=== PATIENT | male | born 1980 | race Caucasian/White ===

== ENCOUNTER 2020-03-18 19:57 | Emergency (ER) | payer OTHER ==
[2020-03-18] MEDS ORDERED: ONDANSETRON HCL 4 MG/2 ML VIAL ONE (20:26)
[2020-03-18] MEDS ORDERED: MORPHINE SULFATE 4 MG/1ML SYG ONE ×2 (20:27→20:56)
[2020-03-18 20:28] LABS: BASOPHILS % (AUTO) 0.2 % (0.0-5.0); EOSINOPHILS % (AUTO) 0.4 % (0.0-8.0); HEMATOCRIT 44.1 % (42-54); LYMPHOCYTES % (AUTO) 9.2 % (21.0-51.0); MEAN CORPUSCULAR HEMOGLOBIN 30.3 pg (27.0-33.0); MEAN CORPUSCULAR HGB CONC 33.8 g/dL (32.0-36.0); MEAN CORPUSCULAR VOLUME 89.6 fL (79-99); MONOCYTES % (AUTO) 2.6 % (3.0-13.0); NEUTROPHILS % (AUTO) 87.3 % (40.0-77.0); PLATELET COUNT (AUTO) 309 K/uL (130-400); RED BLOOD CELL COUNT(AUTO) 4.92 MIL/uL (4.50-6.20); RED CELL DISTRIBUTION WIDTH 12.4 % (11.0-15.5)
[2020-03-18] MEDS ORDERED: SODIUM CHLORIDE 0.9% 50 ML IV ONE (20:28)
[2020-03-18 20:38] LABS: CREATININE 1.5 mg/dL (0.5-1.5); POTASSIUM 3.7 mmol/L (3.5-5.1)
[2020-03-18 20:42] LABS: ALBUMIN 3.9 g/dL (3.5-5.0); BILIRUBIN,TOTAL 0.4 mg/dL (0.2-1.0); TOTAL PROTEIN, SERUM 7.3 g/dL (6.0-8.3)
[2020-03-18 20:48] LABS: INR 1.01 (0.85-1.15); PARTIAL THROMBOPLASTIN TIME 21.2 SEC (26.3-35.5); PROTHROMBIN TIME 10.9 SEC (9.6-11.6)
[2020-03-18 21:32] LABS: APPEARANCE,URINE Clear (CLEAR); BILIRUBIN,URINE Small (NEGATIVE); COLOR,URINE Dark Yellow (YELLOW); GLUCOSE, URINE (UA) Negative (NEGATIVE); KETONES,URINE Trace mg/dL (NEGATIVE); LEUKOCYTE ESTERASE ,URINE Negative (NEGATIVE); NITRATE,URINE Negative (NEGATIVE); OCCULT BLOOD,URINE Negative (NEGATIVE); PROTEIN,URINE POS 1+ mg/dL (NEGATIVE)
[2020-03-18 21:39] LABS: BACTERIA,URINE Rare /HPF (None Seen); MUCUS,URINE Moderate LPF (None Seen); RBC,URINE 0-1 /HPF (0-1); SQUAMOUS EPITHELIAL CELL,UR Rare /HPF (0-2)
[2020-03-18] MEDS ORDERED: DIATR MEGLU/DIATRIZOATE SODIUM 30 ML BOTTLE ONE (21:39)
[2020-03-18 21:40] LABS: AMPHET/METH SCREEN,URINE NEGATIVE (NEGATIVE); BARBITURATE SCREEN, URINE NEGATIVE (NEGATIVE); BENZODIAZEPINES SCREEN,URINE NEGATIVE (NEGATIVE); CANNABINOID SCREEN,URINE POSITIVE (NEGATIVE); COCAINE SCREEN,URINE POSITIVE (NEGATIVE); OPIATE SCREEN,URINE POSITIVE (NEGATIVE); PHENCYCLIDINE SCREEN,URINE NEGATIVE (NEGATIVE)
[2020-03-18] MEDS ORDERED: HALOPERIDOL LACTATE 5 MG/ML VIAL ONE (22:04)
[2020-03-18] MEDS ORDERED: DiphenhydrAMINE HCL 50 MG/ML VIAL ONE (22:04)
[2020-03-18] MEDS ORDERED: SODIUM CHLORIDE 0.9% 1000ML 1,000 ML IV ONE (22:05)
== END 2020-03-19 00:15 | disposition left against medical advice (07) ==
LOC: EDH 19:57
DX: K63.1 Perforation of intestine (nontraumatic) (principal); K21.9 Gastro-esophageal reflux disease without esophagitis; Z79.899 Other long term (current) drug therapy; Z72.0 Tobacco use
CPT/HCPCS: 36415; 74176; 80053; 80305; 81001; 83690; 84484; 85025; 85610; 85730; 93005; 96361; 96372; 96374; 96375; 99285; J1200; J1630; J2270 ×2; J2405; J7030; Q9963

== ENCOUNTER 2020-03-19 15:02 | Inpatient (IN) | payer SELFPAY ==
[~2020-03-19] VITALS: Ht 180.3 cm; Wt 66.2 kg
[2020-03-19] VITALS (9 sets, daily range): BP systolic 118–150; BP diastolic 83–98
[2020-03-19] MEDS ORDERED: ONDANSETRON HCL 4 MG/2 ML VIAL ONE (15:40)
[2020-03-19] MEDS ORDERED: MORPHINE SULFATE 4 MG/1ML SYG ONE (15:40)
[2020-03-19] MEDS ORDERED: KETOROLAC TROMETHAMINE 30MG/ML ONE (15:40)
[2020-03-19] MEDS ORDERED: METRONIDAZOLE 500MG/100ML BAG 100 ML ONE (16:22)
[2020-03-19 17:15] LABS: BASOPHILS % (AUTO) 0.3 % (0.0-5.0); EOSINOPHILS % (AUTO) 0.4 % (0.0-8.0); HEMATOCRIT 49.9 % (42-54); MEAN CORPUSCULAR HEMOGLOBIN 30.5 pg (27.0-33.0); MEAN CORPUSCULAR HGB CONC 34.5 g/dL (32.0-36.0); MEAN CORPUSCULAR VOLUME 88.5 fL (79-99); MONOCYTES % (AUTO) 2.9 % (3.0-13.0); NEUTROPHILS % (AUTO) 90.1 % (40.0-77.0); PLATELET COUNT (AUTO) 315 K/uL (130-400); RED BLOOD CELL COUNT(AUTO) 5.64 MIL/uL (4.50-6.20); RED CELL DISTRIBUTION WIDTH 12.7 % (11.0-15.5); WHITE BLOOD COUNT (AUTO) 15.6 K/uL (4.8-10.8)
[2020-03-19 17:20] LABS: CARBON DIOXIDE 24 mmol/L (21-32); CHLORIDE 96 mmol/L (101-111); GLOMERULAR FILTR. RATE CALC 39 mL/min (>60); GLUCOSE,RANDOM 89 mg/dL (70-105); INR 1.24 (0.85-1.15); PARTIAL THROMBOPLASTIN TIME 30.3 SEC (26.3-35.5); POTASSIUM 4.2 mmol/L (3.5-5.1); PROTHROMBIN TIME 13.3 SEC (9.6-11.6); SODIUM SERUM 133 mmol/L (136-145); UREA NITROGEN, BLOOD 22 mg/dL (7-18)
[2020-03-19] MEDS ORDERED: ACETAMINOPHEN 325 MG TAB PO PRN ×4 (17:30→19:00)
[2020-03-19] MEDS ORDERED: ONDANSETRON HCL 4 MG/2 ML VIAL IVP PRN ×2 (17:30→19:00)
[2020-03-19 17:31] LABS: ALANINE AMINOTRANSFERASE 27 U/L (12-78); ALBUMIN 3.5 g/dL (3.5-5.0); ASPARTATE AMINOTRANSFERASE 28 U/L (10-37); BILIRUBIN,TOTAL 0.7 mg/dL (0.2-1.0); CREATINE KINASE, TOTAL 331 U/L (21-232); MYOGLOBIN 175 ng/mL (10-92); TROPONIN I < 0.04 ng/mL (0.00-0.06)
[2020-03-19] MEDS ORDERED: METOCLOPRAMIDE 10 MG/2 ML VIAL ONE (17:39)
[2020-03-19] MEDS ORDERED: LACTATED RINGERS 1000ML 1,000 ML IV ONE (17:39)
[2020-03-19] MEDS ORDERED: LIDOCAINE PF 2% 5ML ABBOJECT ONE (17:50)
[2020-03-19] MEDS ORDERED: SUCCINYLCHOLINE CHLORIDE 20 MG/ML 10 ML VIAL ONE (17:50)
[2020-03-19] MEDS ORDERED: MIDAZOLAM HCL 1 MG/ML 2ML VIAL ONE (17:51)
[2020-03-19] MEDS ORDERED: ROCURONIUM 10MG/1ML SYR 10 MG/ML ML ONE (17:51)
[2020-03-19] MEDS ORDERED: PROPOFOL 10 MG/ML 20ML VIAL IV ONE ×2 (17:51→19:10)
[2020-03-19] MEDS ORDERED: FENTANYL CITRATE PF 50 MCG/1 ML 5ML AMP IV ONE (17:52)
[2020-03-19 18:02] LABS: APPEARANCE,URINE SL CLOUDY (CLEAR); BILIRUBIN,URINE SMALL (NEGATIVE); COLOR,URINE YELLOW (YELLOW); GLUCOSE, URINE (UA) NEGATIVE (NEGATIVE); KETONES,URINE 15 mg/dL (NEGATIVE); LEUKOCYTE ESTERASE ,URINE NEGATIVE (NEGATIVE); NITRATE,URINE POSITIVE (NEGATIVE); OCCULT BLOOD,URINE TRACE-INTACT (NEGATIVE); PROTEIN,URINE 30 mg/dL (NEGATIVE); UROBILINOGEN,URINE 0.2 mg/dL (0.2-1.0)
[2020-03-19 18:09] LABS: BACTERIA,URINE Moderate /HPF (None Seen); MUCUS,URINE Few LPF (None Seen); SQUAMOUS EPITHELIAL CELL,UR 0-2 /HPF (0-2)
[2020-03-19] MEDS ORDERED: CEFAZOLIN SODIUM 1 GM VIAL ONE (18:37)
[2020-03-19] MEDS ORDERED: ZOLPIDEM TARTRATE 5 MG TAB PO PRN (19:00)
[2020-03-19] MEDS ORDERED: DIPHENHYDRAMINE HCL 25 MG CAPSULE PO PRN (19:00)
[2020-03-19] MEDS ORDERED: NEOSTIGMINE 5MG/5ML SYR IV ONE (19:10)
[2020-03-19] MEDS ORDERED: GLYCOPYRROLATE 1 MG/5 ML SYRINGE ONE (19:10)
[2020-03-19] MEDS ORDERED: FENTANYL CITRATE PF 50 MCG/1 ML 2ML VIAL ONE (19:16)
[2020-03-19] MEDS ORDERED: SODIUM CHLORIDE 0.9% 500ML 500 ML IV ONE (20:23)
[2020-03-19] MEDS: SODIUM CHLORIDE 0.9% 1000ML 1,000 ML IV SCH (22:00)
[2020-03-19] MEDS: FAMOTIDINE/PF 20 MG/2 ML VIAL IV SCH (22:01)
[2020-03-19] MEDS: ZOSYN 3.375GM+NS 50ML 50 ML IV SCH (22:01)
[2020-03-19] MEDS: MORPHINE SULFATE 2 MG/ML 1ML SYG IVP PRN (22:46)
[2020-03-19] MEDS: MORPHINE SULFATE 4 MG/1ML SYG IV PRN (23:05)
[2020-03-20] VITALS (11 sets, daily range): BP systolic 113–133; BP diastolic 67–87
[2020-03-20] MEDS: MORPHINE SULFATE 2 MG/ML 1ML SYG IVP PRN ×4 (01:59→18:27)
[2020-03-20] MEDS: ZOSYN 3.375GM+NS 50ML 50 ML IV SCH ×3 (02:02→16:56)
[2020-03-20 04:23] LABS: BASOPHILS % (AUTO) 0.2 % (0.0-5.0); EOSINOPHILS % (AUTO) 0.3 % (0.0-8.0); HEMATOCRIT 39.9 % (42-54); LYMPHOCYTES % (AUTO) 6.9 % (21.0-51.0); MEAN CORPUSCULAR HEMOGLOBIN 30.2 pg (27.0-33.0); MEAN CORPUSCULAR HGB CONC 34.6 g/dL (32.0-36.0); MEAN CORPUSCULAR VOLUME 87.3 fL (79-99); MONOCYTES % (AUTO) 4.2 % (3.0-13.0); NEUTROPHILS % (AUTO) 87.9 % (40.0-77.0); PLATELET COUNT (AUTO) 244 K/uL (130-400); RED BLOOD CELL COUNT(AUTO) 4.57 MIL/uL (4.50-6.20); RED CELL DISTRIBUTION WIDTH 12.7 % (11.0-15.5); WHITE BLOOD COUNT (AUTO) 12.9 K/uL (4.8-10.8)
[2020-03-20 04:56] LABS: CREATININE 1.5 mg/dL (0.5-1.5); POTASSIUM 4.5 mmol/L (3.5-5.1)
[2020-03-20] MEDS: SODIUM CHLORIDE 0.9% 1000ML 1,000 ML IV SCH ×2 (07:00→12:38)
[2020-03-20] MEDS: MORPHINE SULFATE 4 MG/1ML SYG IV PRN ×3 (07:08→22:24)
[2020-03-20] MEDS: FAMOTIDINE/PF 20 MG/2 ML VIAL IV SCH (07:53)
--- NOTE | 2020-03-20 08:15 | NUR ---
ADMISSION ASSESSMENT UPON DOING THE ADMISSION ASSESSMENT PT STATED HE HAD SUICIDE THOUGHTS 2 DAYS PRIOR IN THE [facility]. PT TO BE PLACED ON A 1:1 FOR SUICIDE RISK. ROOM CLEARED OF HAZARD ITEMS.
--- NOTE | 2020-03-20 08:55 | NUR ---
CHART CHECK COMPLETED. Pt IS A 39 Y.O. MALE ADMITTED SECONDARY TO PERFORATED BOWEL. Pt HAS A PAST MEDICAL HISTORY SIGNIFICANT FOR GERD, ADHD, SMOKER, ALCOHOL, USES STREET DRUGS AND COCAINE. Pt CURRENTLY NPO SECONDARY TO ADMITTING DIAGNOSIS. PLEASE REQUEST FORMAL SKILLED SPEECH THERAPY ORDER IF Pt PRESENTS WITH +S/S OF ASPIRATION SUCH COUGH RESPONSE, THROAT CLEAR OR WET VOCAL QUALITY AT MEAL TIMES. Addendum: 03/20/20 at 0859 by MONICA VASQUEZ, [facility] Amended: Links added.
[2020-03-20] MEDS: NICOTINE 21 MG/ 24 HR PATCH TD SCH (11:28)
--- NOTE | 2020-03-20 12:00 | NUR ---
DR. RAMIREZ CONSULTED. FACESHEET FAXED TO OFFICE.
--- NOTE | 2020-03-20 13:30 | NUR ---
SS NOTE-REFERRAL for SUICIDAL IDEATIONS SW met with pt. who is awake, alert, oriented and cooperative. Pt. reports that he is , independent, not currently employed and resides with his mother Zaina Jean Baptiste. Pt. denies any history of depression, suicide attempts or inpatient psych services. Pt. denies any current thoughts of harm to self or others, denies hallucinations. Pt. admits to having said he was having suicidal ideations [facility] prior to this admission as a way for the guards to transfer him to hospital and only for that reason. Pt. denies any history of mental illness and denies depressed mood. Pt. reports that he has two children that depend on him and that his family/mother and twin brother are supportive of him. Pt. reports history of incarceration for evading arrest. 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 is employed in landscaping and odd jobs. Pt. is not insured, is not registered with a clinic or pharmacy but reports he is aware of [facility]. Plan is for pt. to be downgraded to unit when medically cleared by surgeon. Pt. informed that this worker would follow up to provide community resource packet; pt. verbalized an understanding. Pt. verbalized financial assistance needed with hospitalization; SW contacted [facility] for follow up. Addendum: 03/20/20 at 1513 by ZAINA YA Amended: Links added.
--- NOTE | 2020-03-20 13:30 | NUR ---
Pt. is independent, own healthcare decision maker, unemployed, , resides w/mom. No DME, HH or provider services. Uninsured, no PCP or pharmacy. Pt's mother will provide transportation home: Zaina PosadasLayla Jean Baptiste [phone]. [employer] packet. Addendum: 03/21/20 at 0741 by ZAINA ONOFRE Amended: Links added.
[2020-03-20] MEDS ORDERED: LACTATED RINGERS 1000ML 1,000 ML IV ONE (13:36)
[2020-03-20] MEDS: PANTOPRAZOLE 40 MG/VIAL IVP SCH ×2 (14:00→21:30)
[2020-03-20] MEDS: LACTATED RINGERS 1000ML 1,000 ML IV SCH ×2 (14:18→23:30)
--- NOTE | 2020-03-20 15:15 | NUR ---
SW NOTE Continued----ADDENDUM---Pt. admits to use of etoh, cocaine and tobacco; denies any addictions to use, and declined resources for Substance Use.
[2020-03-20] MEDS ORDERED: FOLIC ACID 5 MG/ML 10 ML VIAL IV SCH (17:15)
[2020-03-20] MEDS ORDERED: THIAMINE HCL 100 MG/ML 2ML VIAL IVP SCH (17:15)
--- NOTE | 2020-03-20 22:45 | NUR ---
Patient transferred Received patient from room 225 under stable conditions, patient denies having any pain or discomfort at this time. Patient noted to have singh catheter, Right NG tube, dressing to abdomen C/D/I with CATHY drain in place.
[2020-03-21 00:20] VITALS: BP 133/79
[2020-03-21] MEDS: ZOSYN 3.375GM+NS 50ML 50 ML IV SCH ×2 (01:20→10:36)
[2020-03-21] MEDS: MORPHINE SULFATE 2 MG/ML 1ML SYG IVP PRN ×6 (02:26→22:50)
[2020-03-21 04:12] VITALS: BP 133/77
[2020-03-21 05:24] LABS: BASOPHILS % (AUTO) 0.2 % (0.0-5.0); HEMATOCRIT 36.5 % (42-54); LYMPHOCYTES % (AUTO) 6.1 % (21.0-51.0); MEAN CORPUSCULAR HEMOGLOBIN 29.8 pg (27.0-33.0); MEAN CORPUSCULAR HGB CONC 33.7 g/dL (32.0-36.0); MEAN CORPUSCULAR VOLUME 88.4 fL (79-99); MONOCYTES % (AUTO) 3.6 % (3.0-13.0); NEUTROPHILS % (AUTO) 89.2 % (40.0-77.0); PLATELET COUNT (AUTO) 211 K/uL (130-400); RED BLOOD CELL COUNT(AUTO) 4.13 MIL/uL (4.50-6.20); RED CELL DISTRIBUTION WIDTH 12.3 % (11.0-15.5); WHITE BLOOD COUNT (AUTO) 10.9 K/uL (4.8-10.8)
[2020-03-21 05:44] LABS: ALBUMIN 2.1 g/dL (3.5-5.0); BILIRUBIN,TOTAL 0.5 mg/dL (0.2-1.0); CREATININE 1.2 mg/dL (0.5-1.5); MAGNESIUM 1.9 mg/dL (1.80-2.40); POTASSIUM 4.6 mmol/L (3.5-5.1); TOTAL PROTEIN, SERUM 5.5 g/dL (6.0-8.3)
--- NOTE | 2020-03-21 08:00 | NUR ---
PT AAA X 3 REVIEW PLAN OF CARE . PT IS A ONE TO ONE MONITOR . ABD DRSG INTACT , WITH A J.P.DRAIN NOTED TO HIS RT LOWER SIDE OF ABD , COMPRESS J.P. BULB FOR COMPRESSSION WITH A FLUILD OUTPUT OF VERY LIGHT SANGROIUS OUTPT . NGT TO HIS RT NARE, AND CHECK FOR PLACEMENT WAS A VERY SM AIR BOLUS ,AND NG IN PLACE ,NOTED TO WALL LOW INTERMMITTED SUCTION WITH A YELLOWISH GREENISH GASTRIC OUTPUT . SIEGEL CATHETER NOTED. AND SECURE TO HIS RT THIGH , WITH A URINE FLOW OF YELLOW URINE. CALL LIGHT IN REACH. BED LEVEL DOWN . AND ENCOURAGE DEEP BREATHING ,
[2020-03-21 08:01] VITALS: BP 140/79
[2020-03-21] MEDS ORDERED: COMPOUND IV REFRIGERATED 1 EACH IVSOLN MISC PRN (08:15)
--- NOTE | 2020-03-21 08:25 | NUR ---
ONEIL NOTE--Revisited to provide Community Resources as he was informed SW would do so; pt. sleeping with 1 to 1 at bedside, resources left on bedside table.
[2020-03-21] MEDS: THIAMINE HCL 100 MG/ML 2ML VIAL IVP SCH (10:36)
[2020-03-21] MEDS: NICOTINE 21 MG/ 24 HR PATCH TD SCH (10:36)
[2020-03-21] MEDS: PANTOPRAZOLE 40 MG/VIAL IVP SCH ×2 (10:36→19:57)
[2020-03-21] MEDS: LACTATED RINGERS 1000ML 1,000 ML IV SCH (10:40)
[2020-03-21] MEDS: FOLIC ACID 5 MG/ML 10 ML VIAL IV SCH (14:39)
[2020-03-21] MEDS: FLUCONAZOLE 200 MG/NS 100 ML 100 ML IV SCH (14:39)
[2020-03-21] MEDS: DEXTROSE 5%-LACTATED RINGERS 1,000 ML IV SCH (16:00)
--- NOTE | 2020-03-21 17:50 | NUR ---
PT , MOVING HIS NGT UP AND DOWN ,AND SIDE TO SIDE, NOTED VERY LIGHT PINKISH NGT GASTRIC SECREATION, NGT TUBE CHECK FOR PLACEMENT WITH A AIR BOLUS OVER GASTRIC REGION NGT IN PLACE ,SETTING ON LOW INTERMMITTED SUCTION . HOB UP . EXPLAIN TO [PT NOT TO TOUCH IT. TO CALL NURSE . FOR ANY CONCERNS .
--- NOTE | 2020-03-21 18:00 | NUR ---
DR. FAITH WAS CALLED AND WAS NOTIFY OF A GASTRIC OUTPUT FROM HIS NGT LIGHT , PINKISH THIN . NOTIFY ALSO THAT PT PICKS ON HIS NGT . UP AND DOWN. AND SIDE TO SIDE, AND LOOKS AT THE TUBES, AND KEEPS ON TOUCH IT , ORDERS FOR LABS IN AM. AND MONITOR , .
[2020-03-21 20:00] VITALS: BP 137/89
--- NOTE | 2020-03-21 20:38 | NUR ---
RESTING IN BED , ENCOURAGE TO DO THE I.S. RESP EXCERCISES . DOES UP TO 1500 CC
[2020-03-22] VITALS (7 sets, daily range): BP systolic 123–147; BP diastolic 82–94
[2020-03-22] MEDS: MORPHINE SULFATE 2 MG/ML 1ML SYG IVP PRN ×4 (02:50→22:50)
[2020-03-22 03:47] LABS: HEMATOCRIT 31.7 % (42-54); MEAN CORPUSCULAR HEMOGLOBIN 30.2 pg (27.0-33.0); MEAN CORPUSCULAR HGB CONC 34.7 g/dL (32.0-36.0); MEAN CORPUSCULAR VOLUME 87.1 fL (79-99); RED BLOOD CELL COUNT(AUTO) 3.64 MIL/uL (4.50-6.20); RED CELL DISTRIBUTION WIDTH 12.2 % (11.0-15.5); WHITE BLOOD COUNT (AUTO) 10.7 K/uL (4.8-10.8)
[2020-03-22 04:06] LABS: POTASSIUM 3.5 mmol/L (3.5-5.1)
--- NOTE | 2020-03-22 05:00 | NUR ---
Patient ambulated around the floor twice. Denied any problems or discomfort. Back in bed and is comfortable
[2020-03-22] MEDS: DEXTROSE 5%-LACTATED RINGERS 1,000 ML IV SCH ×2 (05:20→21:25)
[2020-03-22] MEDS: PANTOPRAZOLE 40 MG/VIAL IVP SCH ×2 (10:52→21:25)
[2020-03-22] MEDS: THIAMINE HCL 100 MG/ML 2ML VIAL IVP SCH (10:52)
[2020-03-22] MEDS: FOLIC ACID 5 MG/ML 10 ML VIAL IV SCH (10:53)
[2020-03-22] MEDS: NICOTINE 21 MG/ 24 HR PATCH TD SCH (10:53)
[2020-03-22] MEDS: FLUCONAZOLE 200 MG/NS 100 ML 100 ML IV SCH (10:53)
[2020-03-22] MEDS: MORPHINE SULFATE 4 MG/1ML SYG IV PRN (10:53)
--- NOTE | 2020-03-22 15:14 | NUR ---
RD NOTIFICATION Pt admitted with perforated bowel. Pt is s/p emergent surgical repair. RD notified for TPN recommendation; plans for TPN cancelled as per RN, Pt diet advanced to Clear Liquid and not to be advanced as per order. Pt small for age and height. Monitored labs: Ca 8.2, Alb 2.1. Pt with history of polysubstance abuse. Pending Psychiatric eval as per EMR. Folic acid, fluconazole, nicoderm, morphine, thiamine, protonix medications in place. Recommend Ensure Clear TID with meals Recommend to continue vitamin supplementation RD to continue to monitor. Please notify as additional nutrition concerns arise. Thank you. Addendum: 03/22/20 at [address] Amended: Links added.
--- NOTE | 2020-03-22 19:00 | NUR ---
PM Assessment Received pt awake on high back rest, routine assessment done, plan of care discuss, reminded only on clear liquid diet for now, pt claimed (+) flatus, no BM. Dressing to the surgical site abdominal area & CATHY drain site noted with dry serosanguineous of the dressing, change aseptically, site swab with iodine, 35 staple sutures intact, well approximated, CATHY drain silk suture intact cover with non adherent pad, 4x4 gauze secure with MedFix retention tape. No drainage noted on the incision site & CATHY puncture site. IV access noted infiltrated discontinued aseptically, new access initiated x 1 attempt with all procedures well tolerated. Pt made aware bowel sound still hypoactive, encourage to ambulate before going to sleep tonight, agreed. Pt currently claimed feeling better as he was given Morphine earlier.
--- NOTE | 2020-03-22 20:30 | NUR ---
Re: Ambulation Pt requested to ambulate at this time, D5LR at 75cc stop for now as pt wants do everything on his own, fix all his contraptions, making sure nothing is disconnected, ambulated around the unit x 4 rounds, claimed to be passing flatus more & that it makes his abdomen feels good. Pt made aware in case he is able to have a BM to make sure to notify us so hopefully his diet will be progress to full liquid then soft or regular diet.
[2020-03-23] MEDS: MORPHINE SULFATE 2 MG/ML 1ML SYG IVP PRN ×3 (02:54→11:42)
[2020-03-23 04:42] VITALS: BP 135/86
[2020-03-23 06:22] LABS: BASOPHILS % (AUTO) 0.1 % (0.0-5.0); EOSINOPHILS % (AUTO) 0.1 % (0.0-8.0); HEMATOCRIT 34.7 % (42-54); LYMPHOCYTES % (AUTO) 7.1 % (21.0-51.0); MEAN CORPUSCULAR HEMOGLOBIN 30.6 pg (27.0-33.0); MEAN CORPUSCULAR HGB CONC 35.4 g/dL (32.0-36.0); MEAN CORPUSCULAR VOLUME 86.3 fL (79-99); MONOCYTES % (AUTO) 8.4 % (3.0-13.0); NEUTROPHILS % (AUTO) 83.3 % (40.0-77.0); PLATELET COUNT (AUTO) 218 K/uL (130-400); RED BLOOD CELL COUNT(AUTO) 4.02 MIL/uL (4.50-6.20); RED CELL DISTRIBUTION WIDTH 12.4 % (11.0-15.5); WHITE BLOOD COUNT (AUTO) 10.9 K/uL (4.8-10.8)
[2020-03-23 06:41] LABS: MAGNESIUM 1.9 mg/dL (1.80-2.40); POTASSIUM 3.4 mmol/L (3.5-5.1)
[2020-03-23 07:00] VITALS: BP 115/69
[2020-03-23] MEDS: DEXTROSE 5%-LACTATED RINGERS 1,000 ML IV SCH ×2 (08:00→20:08)
[2020-03-23] MEDS: NICOTINE 21 MG/ 24 HR PATCH TD SCH (09:45)
[2020-03-23] MEDS: PANTOPRAZOLE 40 MG/VIAL IVP SCH ×2 (09:45→20:04)
[2020-03-23] MEDS: THIAMINE HCL 100 MG/ML 2ML VIAL IVP SCH (09:45)
[2020-03-23] MEDS: FLUCONAZOLE 200 MG/NS 100 ML 100 ML IV SCH (09:45)
[2020-03-23] MEDS: FOLIC ACID 5 MG/ML 10 ML VIAL IV SCH (09:47)
[2020-03-23] MEDS ORDERED: LACTULOSE 20 GM/30 ML UDCUP PO PRN (10:00)
[2020-03-23 11:00] VITALS: BP 141/85
[2020-03-23] MEDS ORDERED: BISACODYL 10 MG SUPP.RECT RC PRN (13:00)
[2020-03-23 15:00] VITALS: BP 155/100
--- NOTE | 2020-03-23 15:01 | NUR ---
DR. FAITH MADE AWARE OF KUB RESULTS OF ILEUS VS OBSTRUCTION. PER DR. FAITH KEEP PATIENT NPO, DR. FAITH MADE AWARE PATIENT DID HAVE A BOWEL MOVEMENT TODAY AND IS PASSING GAS. NO FURTHER ORDERS MD WILL REEVALUATE PATIENT TOMORROW
--- NOTE | 2020-03-23 15:12 | NUR ---
SIEGEL CATHETER DISCONTINUED WITH NO COMPLICATIONS
[2020-03-23] MEDS: MORPHINE SULFATE 4 MG/1ML SYG IV PRN ×2 (16:24→20:07)
[2020-03-23 16:40] LABS: APPEARANCE,URINE Cloudy (CLEAR); BILIRUBIN,URINE Negative (NEGATIVE); COLOR,URINE Yellow (YELLOW); GLUCOSE, URINE (UA) Negative (NEGATIVE); KETONES,URINE 15 mg/dL (NEGATIVE); LEUKOCYTE ESTERASE ,URINE Small (NEGATIVE); NITRATE,URINE Negative (NEGATIVE); OCCULT BLOOD,URINE Large (NEGATIVE); PH,URINE 5.5 (5.0-8.0); PROTEIN,URINE POS 1+ mg/dL (NEGATIVE)
[2020-03-23 16:50] LABS: BACTERIA,URINE Few /HPF (None Seen); MUCUS,URINE Moderate LPF (None Seen); SPERM,URINE Moderate /HPF (None Seen); SQUAMOUS EPITHELIAL CELL,UR Few /HPF (0-2)
[2020-03-23] MEDS ORDERED: DEXTROSE 5%-LACTATED RINGERS 1,000 ML IV ONE (18:19)
[2020-03-23 20:25] VITALS: BP 127/90
[2020-03-23 23:39] VITALS: BP 131/94
[2020-03-24] MEDS: MORPHINE SULFATE 2 MG/ML 1ML SYG IVP PRN (00:17)
--- NOTE | 2020-03-24 03:29 | NUR ---
I noticed on the progress notes for Dr. De Santiago and Dr. Levy that both are entering that the Zoysn will be continued. I noticed it had been started on 03/19/[address] Regalado, and then discontinued on the by 's CANCELING AND CUTTING CONTROL CLERK. I paged Roverto CLOTHER IN via answering service, answered within a few seconds, informed her of above, she stated to go ahead and clarify it with in the morning.
[2020-03-24 03:49] VITALS: BP 152/86
[2020-03-24] MEDS ORDERED: DEXTROSE 5%-LACTATED RINGERS 1,000 ML IV ONE ×2 (04:23→17:09)
[2020-03-24] MEDS: DEXTROSE 5%-LACTATED RINGERS 1,000 ML IV SCH ×2 (04:29→17:53)
[2020-03-24] MEDS: MORPHINE SULFATE 4 MG/1ML SYG IV PRN (04:29)
[2020-03-24 06:11] LABS: BASOPHILS % (AUTO) 0.3 % (0.0-5.0); EOSINOPHILS % (AUTO) 0.3 % (0.0-8.0); LYMPHOCYTES % (AUTO) 9.9 % (21.0-51.0); MEAN CORPUSCULAR HEMOGLOBIN 29.8 pg (27.0-33.0); MEAN CORPUSCULAR HGB CONC 34.3 g/dL (32.0-36.0); MEAN CORPUSCULAR VOLUME 86.9 fL (79-99); MONOCYTES % (AUTO) 9.2 % (3.0-13.0); NEUTROPHILS % (AUTO) 79.1 % (40.0-77.0); PLATELET COUNT (AUTO) 272 K/uL (130-400); RED BLOOD CELL COUNT(AUTO) 4.26 MIL/uL (4.50-6.20); RED CELL DISTRIBUTION WIDTH 12.5 % (11.0-15.5); WHITE BLOOD COUNT (AUTO) 10.1 K/uL (4.8-10.8)
[2020-03-24 06:31] LABS: CREATININE 0.8 mg/dL (0.5-1.5); MAGNESIUM 1.9 mg/dL (1.80-2.40); POTASSIUM 3.9 mmol/L (3.5-5.1)
[2020-03-24 07:00] VITALS: BP 149/99
--- NOTE | 2020-03-24 08:00 | NUR ---
AM ASSESSMENT PT SITTING IN BED, WATCHING TV. A/O X 3. NO SOB. NO DISTRESS NOTED. C/O ABD/INCISIONAL PAIN @ THIS TIME. IV PAIN MED TO BE GIVEN. DENIES CHEST PAIN AND/OR PALPITATIONS. TELE: SR. NPO STATUS REINFORCED. DENIES N/V AND/OR DIARRHEA. ABD INCISION DSG DRY & INTACT. NO DRAINAGE NOTED. CATHY DRAIN PATENT & DRAINING, SEROUS. D5LR INFUSING @ 100 ML/HR. UP AD DAYAMI. FREQUENTLY AMBULATING IN HALLWAY; TOLERATING WELL. INSTRUCTED TO CALL FOR ASSISTANCE. CALL CHICHI W/IN REACH.
[2020-03-24] MEDS: FLUCONAZOLE 200 MG/NS 100 ML 100 ML IV SCH (08:27)
[2020-03-24] MEDS: THIAMINE HCL 100 MG/ML 2ML VIAL IVP SCH (08:27)
[2020-03-24] MEDS: NICOTINE 21 MG/ 24 HR PATCH TD SCH (08:30)
[2020-03-24] MEDS ORDERED: POLYETHYLENE GLYCOL 3350 17 GM POWD.PACK PO SCH (09:00)
[2020-03-24] MEDS ORDERED: KETOROLAC TROMETHAMINE 30MG/ML IM PRN (10:30)
[2020-03-24 11:00] VITALS: BP 142/93
[2020-03-24] MEDS: PANTOPRAZOLE 40 MG/VIAL IVP SCH ×2 (11:26→20:23)
[2020-03-24] MEDS: FOLIC ACID 5 MG/ML 10 ML VIAL IV SCH (11:38)
[2020-03-24] MEDS: KETOROLAC TROMETHAMINE 30MG/ML IV SCH ×3 (11:48→23:54)
[2020-03-24] MEDS ORDERED: KETOROLAC TROMETHAMINE 30MG/ML IM SCH (12:00)
[2020-03-24] MEDS: ZOSYN 3.375GM+NS 50ML 50 ML IV SCH ×2 (13:24→20:24)
[2020-03-24 15:00] VITALS: BP 125/88
[2020-03-24 19:30] VITALS: BP 135/86
[2020-03-24 23:33] VITALS: BP 130/90
[2020-03-25 03:37] VITALS: BP 132/89
[2020-03-25] MEDS ORDERED: DEXTROSE 5%-LACTATED RINGERS 1,000 ML IV ONE ×2 (04:05→18:05)
[2020-03-25] MEDS: ZOSYN 3.375GM+NS 50ML 50 ML IV SCH ×3 (04:09→20:52)
[2020-03-25 06:02] LABS: BASOPHILS % (AUTO) 0.2 % (0.0-5.0); EOSINOPHILS % (AUTO) 0.8 % (0.0-8.0); LYMPHOCYTES % (AUTO) 12.5 % (21.0-51.0); MEAN CORPUSCULAR HEMOGLOBIN 29.3 pg (27.0-33.0); MEAN CORPUSCULAR HGB CONC 33.3 g/dL (32.0-36.0); MEAN CORPUSCULAR VOLUME 87.8 fL (79-99); MONOCYTES % (AUTO) 8.4 % (3.0-13.0); NEUTROPHILS % (AUTO) 77.2 % (40.0-77.0); PLATELET COUNT (AUTO) 317 K/uL (130-400); RED BLOOD CELL COUNT(AUTO) 4.44 MIL/uL (4.50-6.20); RED CELL DISTRIBUTION WIDTH 12.3 % (11.0-15.5); WHITE BLOOD COUNT (AUTO) 10.3 K/uL (4.8-10.8)
[2020-03-25] MEDS: KETOROLAC TROMETHAMINE 30MG/ML IV SCH ×4 (06:03→23:49)
[2020-03-25 06:13] LABS: CREATININE 0.9 mg/dL (0.5-1.5); MAGNESIUM 1.8 mg/dL (1.80-2.40); POTASSIUM 3.8 mmol/L (3.5-5.1)
[2020-03-25 08:00] VITALS: BP 130/80
[2020-03-25] MEDS: NICOTINE 21 MG/ 24 HR PATCH TD SCH (08:52)
[2020-03-25] MEDS: FLUCONAZOLE 200 MG/NS 100 ML 100 ML IV SCH (08:52)
[2020-03-25] MEDS: PANTOPRAZOLE 40 MG/VIAL IVP SCH ×2 (08:52→20:52)
[2020-03-25] MEDS: THIAMINE HCL 100 MG/ML 2ML VIAL IVP SCH (09:00)
[2020-03-25 11:18] VITALS: BP 134/89
[2020-03-25] MEDS: FOLIC ACID 5 MG/ML 10 ML VIAL IV SCH (12:18)
[2020-03-25 15:53] VITALS: BP 117/78
[2020-03-25] MEDS: DEXTROSE 5%-LACTATED RINGERS 1,000 ML IV SCH (18:19)
[2020-03-25 20:00] VITALS: BP 127/83
[2020-03-25] MEDS: ENOXAPARIN SODIUM 30 MG/0.3 ML SQ SCH (20:54)
[2020-03-25 23:51] VITALS: BP 131/84
[2020-03-26 04:01] VITALS: BP 138/87
--- NOTE | 2020-03-26 04:58 | NUR ---
ACTIVITY PATIENT IS WALKED IN HALLWAY SEVERAL TIMES AROUND UNIT.
[2020-03-26 05:46] LABS: CREATININE 0.9 mg/dL (0.5-1.5); POTASSIUM 3.7 mmol/L (3.5-5.1)
[2020-03-26] MEDS: ZOSYN 3.375GM+NS 50ML 50 ML IV SCH ×2 (06:14→13:00)
[2020-03-26] MEDS: KETOROLAC TROMETHAMINE 30MG/ML IV SCH ×2 (06:20→12:37)
[2020-03-26] MEDS ORDERED: DEXTROSE 5%-LACTATED RINGERS 1,000 ML IV ONE (06:21)
[2020-03-26] MEDS: DEXTROSE 5%-LACTATED RINGERS 1,000 ML IV SCH (06:40)
[2020-03-26 07:58] VITALS: BP 131/84
[2020-03-26] MEDS: PANTOPRAZOLE 40 MG/VIAL IVP SCH (08:35)
[2020-03-26] MEDS: FLUCONAZOLE 200 MG/NS 100 ML 100 ML IV SCH (08:36)
[2020-03-26] MEDS: FOLIC ACID 5 MG/ML 10 ML VIAL IV SCH (08:36)
[2020-03-26] MEDS: ENOXAPARIN SODIUM 30 MG/0.3 ML SQ SCH (08:36)
[2020-03-26] MEDS: THIAMINE HCL 100 MG/ML 2ML VIAL IVP SCH (08:36)
[2020-03-26] MEDS: NICOTINE 21 MG/ 24 HR PATCH TD SCH (08:36)
[2020-03-26 11:39] VITALS: BP 133/88
--- NOTE | 2020-03-26 13:40 | NUR ---
SW NOTE--Follow up with pt. re-resource packet left for him by this worker; pt. reported that he received it. Pt. voiced no concerns.
--- NOTE | 2020-03-26 14:58 | NUR ---
RD FOLLOW UP Pt tolerating Clear Liquid diet order at this time, as per RN. Pt ambulating at time of visit. Pt with toradol, lovenox, folic acid, nicoderm, Protonix, Dxt/Lactated Ringer's medications in place. No new nutrition labs of concern at time of screen. Pending possible diet advanced. RD to continue to monitor.
--- NOTE | 2020-03-26 16:20 | NUR ---
AMA PATIENT CAN NO LONGER WAIT TO BE DISCHARGED HAS A FAMILY EMERGENCY. PATIENT WAS NOT YET CLEAR BY GENERAL SURGERY. GORDON GOMES CAME IN AND SPOKE TO PATIENT REGARDING RISKS ON LEAVING AGAINST MEDICAL ADVICE, HOWEVER PATIENT DECIDED HE NEEDED TO GO HOME TO TAKE CARE OF FAMILY ISSUES. IV WAS REMOVED. PATIENT WAS TAUGHT HOW TO TAKE CARE OF CATHY DRAIN AND ADVISED TO FOLLOW UP WITH DR FAITH.
[2020-03-27 11:13] LABS: CHLAMYDIA DNA N.A.AMPLIFY Negative (Negative)
[2020-03-28] MEDS ORDERED: ZOSYN 3.375GM+NS 50ML 50 ML IV SCH (21:00)
== END 2020-03-26 15:40 | disposition left against medical advice (07) | DRG 853 ==
LOC: EDH 15:02 → EDHIP 15:03 → 2DH 21:06 → 4AH 03-20 22:43
PROVIDERS: ADMIT Hospitalist; ATTEND Hospitalist
PROC: 0DU907Z Supplement Duodenum with Autologous Tissue Substitute, Open Approach (ICD-10-PCS; principal; 2020-03-19 17:58)
PROC: 0D9670Z Drainage of Stomach with Drainage Device, Via Natural or Artificial Opening (ICD-10-PCS; 2020-03-22)
DX: A41.50 Gram-negative sepsis, unspecified (principal); K26.5 Chronic or unspecified duodenal ulcer with perforation; K65.0 Generalized (acute) peritonitis; N39.0 Urinary tract infection, site not specified; K56.7 Ileus, unspecified; R45.851 Suicidal ideations; F17.200 Nicotine dependence, unspecified, uncomplicated; F10.10 Alcohol abuse, uncomplicated; F12.10 Cannabis abuse, uncomplicated; F14.10 Cocaine abuse, uncomplicated; K21.9 Gastro-esophageal reflux disease without esophagitis; Z53.29 Procedure and treatment not carried out because of patient's decision for other reasons
CPT/HCPCS: 36415; 71045; 74018; 80048; 80053; 81001; 82550; 83605; 83735; 83874; 84145; 84484; 85025; 85027; 85610; 85730; 86900; 86901; 87040; 87070; 87076; 87077; 87088; 87186; 87205; 87338; 87426; 87486; 87797; 93005; A4344; C9113; G0378; J0330; J0690; J1450; J1650; J1885; J2001; J2250; J2270; J2405; J2543; J2704; J2710; J2765; J3010; J3411; J3490; J7030; J7040; J7120

== ENCOUNTER 2020-04-07 18:01 | Emergency (ER) | payer SELFPAY ==
[2020-04-07] MEDS ORDERED: ACETAMINOPHEN EXTRA STRENGTH 500 MG TABLET ONE (18:31)
== END 2020-04-07 18:43 | disposition home or self-care (01) ==
LOC: EDH 18:01
DX: G89.18 Other acute postprocedural pain (principal); R10.9 Unspecified abdominal pain; K21.9 Gastro-esophageal reflux disease without esophagitis; F90.9 Attention-deficit hyperactivity disorder, unspecified type; Z72.0 Tobacco use
CPT/HCPCS: 99282